=== PATIENT | female | born 1960 | race Caucasian/White ===

== ENCOUNTER 2019-03-01 16:44 | Observation (INO) | payer MEDICARE ==
[2019-03-01] MEDS ORDERED: Calcium Gluconate 10% 1 GM/10 ML SDV IVPUSH ONE (16:49)
[2019-03-01] MEDS ORDERED: Albuterol 0.083% 2.5 MG/3 ML Neb Soln NEB ONE (16:52)
[2019-03-01] MEDS ORDERED: Furosemide 40 MG/4 ML VIAL IVPUSH ONE (16:53)
[2019-03-01] MEDS ORDERED: Insulin Regular, Human 20 UNIT in Dextrose 10% in Water 500 ML IV SCH ×2 (17:00)
--- NOTE | 2019-03-01 17:01 | PCM.HP.2 ---
H&P History of Present Illness - General Date of Service: 03/01/19 Admit Problem/Dx: Admission Diagnosis/Problem Admission Diagnosis/Problem Hyperkalemia, diminished renal excretion Source of Information: Patient History Limitations: Reports: No Limitations - History of Present Illness Initial Comments - Free Text/Narative: This is a 58yo F sent to the clinic for hyperkalemia. She has had elevated potassium for days. She was asked to go to the hospital a few days ago but refused. She was asked to f/u yesterday for labs but could only make it today. She did get labs and was told to come in and get checked out right away. She denies any chest pain, no palpitations and she states she does not really need to be here. Onset of Symptoms: Reports: Gradual Duration of Symptoms: Reports: Day(s): - Related Data Allergies/Adverse Reactions: Allergies Allergy/AdvReac Type Severity Reaction Status Date / Time No Known Allergies Allergy Verified 10/08/18 13:38 Past Medical History Cardiovascular History: Reports: Other (See Below) Other Cardiovascular History: hypotension Musculoskeletal History: Reports: Other (See Below) Other Musculoskeletal History: arthodesis, multiple foot surgeries R Endocrine/Metabolic History: Reports: Diabetes, Type II H&P Review of Systems - Review of Systems: Review Of Systems: ROS reveals no pertinent complaints other than HPI. Exam - Exam Exam: See Below - Exam General: Alert, Oriented, Cooperative HEENT: PERRLA, Conjunctiva Clear, EACs Clear Neck: Supple, Trachea Midline Lungs: Clear to Auscultation, Normal Respiratory Effort Cardiovascular: Regular Rate, Regular Rhythm GI/Abdominal Exam: Normal Bowel Sounds Back Exam: Normal Inspection - Problem List (1) Acute hyperkalemia SNOMED Code(s): 5771633 ICD Code: E87.5 - HYPERKALEMIA Status: Acute Priority: High Current Visit: Yes (2) Renal dysfunction Status: Acute Priority: High Current Visit: Yes Problem List Initiated/Reviewed/Updated: Yes Orders Last 24hrs: Active Orders 24 hr Category Date Time Status Patient Status [ADT] Routine ADT 03/01/19 16:47 Ordered EKG Documentation Completion [RC] ASDIRECTED Care 03/01/19 16:54 Ordered EKG Documentation Completion [RC] ASDIRECTED Care 03/01/19 16:54 Ordered RT Aerosol Therapy [RC] ASDIRECTED Care 03/01/19 16:53 Ordered Vital Signs [RC] Q4H Care 03/01/19 16:47 Ordered Regular Diet [DIET] Diet 03/01/19 Dinner Ordered POTASSIUM,K [CHEM] Timed Lab 03/01/19 19:00 Ordered Albuterol [Proventil Neb Soln] Med 03/01/19 16:52 Once 2.5 mg NEB ONETIME ONE Calcium Gluconate Med 03/01/19 16:49 Once 1 gm IVPUSH ONETIME ONE Furosemide [Lasix] Med 03/01/19 16:53 Once 40 mg IVPUSH NOW ONE Insulin Regular, Human [HumuLIN R] 20 unit Med 03/01/19 17:00 Ordered Dextrose 10% in Water 500 ml IV ASDIRECTED Sodium Chloride 0.45% @ 125 MLS/HR(1,000ml) Med 03/01/19 17:00 Ordered Sodium Chloride 0.45% 1,000 ml IV ASDIRECTED Resuscitation Status Routine Resus Stat 03/01/19 16:47 Ordered EKG 12 Lead [EK] Routine Ther 03/01/19 16:53 Ordered EKG 12 Lead [EK] Routine Ther 03/01/19 19:00 Ordered Medication Orders Albuterol (Proventil Neb Soln) 2.5 mg NEB ONETIME ONE Stop: 03/01/19 16:53 Calcium Gluconate (Calcium Gluconate) 1 gm IVPUSH ONETIME ONE Stop: 03/01/19 16:50 Furosemide (Lasix) 40 mg IVPUSH NOW ONE Stop: 03/01/19 16:54 Insulin Human Regular 20 unit/ (Dextrose/Water) 500.2 mls @ 500 mls/hr IV ASDIRECTED [facility] Assessment/Plan Comment:: Patient to be placed on observation. Start on calcium gluconate, insulin and glucose, albuterol and fluids with lasix. Discussed close monitoring. F/u K+ and EKG.
[2019-03-01] MEDS ORDERED: Calcium Gluconate 1 GM in Dextrose 5% in Water 50 ML IV ONE ×2 (17:45)
[2019-03-01] MEDS ORDERED: WATER IV SCH ×2 (18:12)
[2019-03-01] MEDS ORDERED: HUMAN IV SCH ×2 (18:12)
[2019-03-01] MEDS ORDERED: DEXTROSE 10% IV SCH ×2 (18:12)
[2019-03-01] MEDS ORDERED: INSULIN REGULAR IV SCH ×2 (18:12)
[2019-03-01] MEDS ORDERED: Insulin Regular, Human 100 Units/ML 3 ML Vial ONE (18:28)
[2019-03-01] MEDS: Sodium Chloride 0.45% 1,000 ML IV SCH (22:53)
[2019-03-02] MEDS: Sodium Chloride 0.45% 1,000 ML IV SCH (06:37)
--- NOTE | 2019-03-02 08:09 | PCM.DCSUM1 ---
Discharge Summary - Discharge Data Discharge Date: 03/02/19 Discharge Disposition: Home, Self-Care 01 Condition: Good - Referral to Home Health Primary Care Physician: Damián Caputo MD - Discharge Diagnosis/Problem(s) (1) Acute hyperkalemia SNOMED Code(s): 0488950 ICD Code: E87.5 - HYPERKALEMIA Status: Resolved Priority: High Current Visit: Yes (2) Renal dysfunction Status: Chronic Priority: High Current Visit: Yes - Patient Instructions Diet: Renal Diet Activity: As Tolerated - Discharge Plan Home Medications: Home Meds Cholestyramine/Sucrose [Cholestyramine Packet] 4 gm PO 03/01/19 [History] Clopidogrel Bisulfate [Clopidogrel] 75 mg PO DAILY 03/01/19 [History] Doxycycline Hyclate 100 mg PO BID 03/01/19 [History] Ergocalciferol (Vitamin D2) [Ergocal] 50,000 units PO WEEKLY 03/01/19 [History] Fenofibrate Nanocrystallized [Fenofibrate] 48 mg PO DAILY 03/01/19 [History] Insulin Aspart [NovoLOG] 5 units SQ TIDMEALS 03/01/19 [History] Insulin Degludec [Tresiba Flextouch U-100] 45 units SQ BEDTIME 03/01/19 [History ] Lisinopril 1 tab PO DAILY 03/01/19 [History] Pantoprazole Sodium 1 tab PO DAILY 03/01/19 [History] - Discharge Summary/Plan Comment DC Time >30 min.: Yes Discharge Summary/Plan Comment: Counseled on hyperkalemia and management and likely caused from her lisinopril. Discussed close monitoring and f/u with PCP for f/u care and management. Discussed renal dysfunction and continued f/u with PCP for further care and recheck within a week. Patient adamant she needs to leave today despite concerns of continued renal dysfunction but patient does understand risks and states she understands her kidneys are bad and will follow up with her primary care this week. Discussed the need for medication adjustment for prevention of hyperkalemia. Patient to f/ u as directed and as needed. - Patient Data Vitals - Most Recent: Last Vital Signs Temp 36.4 C 03/02/19 03:00 Pulse 76 03/02/19 03:00 Resp 16 03/02/19 03:00 BP 114/48 L 03/02/19 03:00 Pulse Ox 100 03/02/19 03:00 Weight - Most Recent: 68.402 kg I&O - Last 24 hours: Intake & Output 03/01/19 03/02/19 03/02/19 22:59 06:59 14:59 Intake Total 1875 Balance 1875 Lab Results - Last 24 hrs: Laboratory Results - last 24 hr 03/01/19 03/01/19 03/02/19 Range/Units 19:00 20:00 07:20 WBC 7.0 (4.0-11.0) K/uL RBC 2.88 L (3.80-5.80) M/uL Hgb 8.5 L (11.5-16.5) g/dL Hct 26.3 L (37.0-47.0) % MCV 91 (76-96) fL MCH 29.5 (27.0-32.0) pg MCHC 32.3 (31.0-35.0) g/dL RDW 13.5 (11.0-16.0) % Plt Count 242 (150-500) K/uL MPV 8.8 (6.0-10.0) fL Neut % (Auto) 58.3 (45.0-70.0) % Lymph % (Auto) 33.6 (20.0-40.0) % [place] % (Auto) 5.0 (3.0-10.0) % Eos % (Auto) 2.7 (1.0-5.0) % Baso % (Auto) 0.4 (0.0-0.5) % Neut # (Auto) 4.08 (2.00-7.50) K/uL Lymph # (Auto) 2.35 (1.50-4.00) K/uL [place] # (Auto) 0.35 (0.20-0.80) K/uL Eos # (Auto) 0.19 (0.04-0.40) K/uL Baso # (Auto) 0.03 (0.02-0.10) K/uL Sodium (136-145) mmol/L Potassium 5.0 D (3.5-5.1) mmol/L Chloride (98-107) mmol/L Carbon Dioxide (21.0-32.0) mmol/L Anion Gap (5.0-15.0) mmol/L BUN (8-26) mg/dL Creatinine (0.55-1.02) mg/dL Est Cr Clr Drug Dosing mL/min Estimated GFR (MDRD) (>60) MLS/MIN BUN/Creatinine Ratio (6-25) Glucose (74-100) mg/dL POC Glucose 213 H (74-110) mg/dL Calcium (8.5-10.1) mg/dL Total Bilirubin (0.0-1.0) mg/dL AST (15-37) U/L ALT (12-78) U/L Alkaline Phosphatase (46-116) U/L Total Protein (6.4-8.2) g/dL Albumin (3.4-5.0) g/dL Globulin (2.2-4.2) g/dL Albumin/Globulin Ratio (0.8-2.0) 03/02/19 Range/Units 07:20 WBC (4.0-11.0) K/uL RBC (3.80-5.80) M/uL Hgb (11.5-16.5) g/dL Hct (37.0-47.0) % MCV (76-96) fL MCH (27.0-32.0) pg MCHC (31.0-35.0) g/dL RDW (11.0-16.0) % Plt Count (150-500) K/uL MPV (6.0-10.0) fL Neut % (Auto) (45.0-70.0) % Lymph % (Auto) (20.0-40.0) % [place] % (Auto) (3.0-10.0) % Eos % (Auto) (1.0-5.0) % Baso % (Auto) (0.0-0.5) % Neut # (Auto) (2.00-7.50) K/uL Lymph # (Auto) (1.50-4.00) K/uL [place] # (Auto) (0.20-0.80) K/uL Eos # (Auto) (0.04-0.40) K/uL Baso # (Auto) (0.02-0.10) K/uL Sodium 139 (136-145) mmol/L Potassium 5.0 (3.5-5.1) mmol/L Chloride 105 (98-107) mmol/L Carbon Dioxide 22.4 (21.0-32.0) mmol/L Anion Gap 16.6 H (5.0-15.0) mmol/L BUN 63 H* (8-26) mg/dL Creatinine 2.41 H (0.55-1.02) mg/dL Est Cr Clr Drug Dosing 18.50 mL/min Estimated GFR (MDRD) 21 L (>60) MLS/MIN BUN/Creatinine Ratio 26.1 H (6-25) Glucose 136 H (74-100) mg/dL POC Glucose (74-110) mg/dL Calcium 8.5 (8.5-10.1) mg/dL Total Bilirubin 0.3 (0.0-1.0) mg/dL AST 24 (15-37) U/L ALT 13 (12-78) U/L Alkaline Phosphatase 60 (46-116) U/L Total Protein 6.5 (6.4-8.2) g/dL Albumin 2.9 L (3.4-5.0) g/dL Globulin 3.6 (2.2-4.2) g/dL Albumin/Globulin Ratio 0.8 (0.8-2.0) Med Orders - Current: Current Medications Sodium Chloride (Sodium Chloride 0.45%) 1,000 mls @ 125 mls/hr IV ASDIRECTED [facility] Last Admin: 03/02/19 06:37 Dose: 125 mls/hr Insulin Human Regular 40 unit/ (Dextrose/Water) 1,000.4 mls @ 500 mls/hr IV ASDIRECTED [facility] Last Admin: 03/01/19 18:15 Dose: 500 mls/hr Discontinued Medications Albuterol (Proventil Neb Soln) 2.5 mg NEB ONETIME ONE Stop: 03/01/19 16:53 Last Admin: 03/01/19 17:15 Dose: 2.5 mg Calcium Gluconate (Calcium Gluconate) 1 gm IVPUSH ONETIME ONE Stop: 03/01/19 16:50 Last Admin: 03/01/19 21:49 Dose: Not Given Furosemide (Lasix) 40 mg IVPUSH NOW ONE Stop: 03/01/19 16:54 Last Admin: 03/01/19 17:20 Dose: 40 mg Insulin Human Regular 20 unit/ (Dextrose/Water) 500.2 mls @ 500 mls/hr IV ASDIRECTED [facility] Calcium Gluconate 1 gm/ (Dextrose/Water) 60 mls @ 120 mls/hr IV ONETIME ONE Stop: 03/01/19 18:14 Last Admin: 03/01/19 17:25 Dose: 120 mls/hr Insulin Human Regular (Humulin R) Confirm Administered Dose 300 unit .ROUTE .STK -MED ONE Stop: 03/01/19 18:29 Last Admin: 03/01/19 21:50 Dose: Not Given
== END 2019-03-02 09:38 | disposition home or self-care (01) ==
LOC: LB.MS 16:44 → UNDOADMOB 16:44 → LB.MS 16:47
PROVIDERS: ADMIT Family Medicine; ATTEND Family Medicine
DX: E87.5 Hyperkalemia (principal); E11.22 Type 2 diabetes mellitus with diabetic chronic kidney disease; N18.9 Chronic kidney disease, unspecified; Z79.02 Long term (current) use of antithrombotics/antiplatelets; Z79.4 Long term (current) use of insulin; Z79.899 Other long term (current) drug therapy
CPT/HCPCS: 36415; 80053; 82962; 84132; 85025; 93005; 96361; 96374; 96375; G0378; J0610; J1940; J3490; J7060

== ENCOUNTER 2022-05-13 13:42 | Emergency (ER) | payer MEDICARE | END 2022-05-13 15:15 | disposition home or self-care (01) | LOC: LB.ED 13:42 | DX: J44.9 Chronic obstructive pulmonary disease, unspecified (principal); I12.9 Hypertensive chronic kidney disease with stage 1 through stage 4 chronic kidney disease, or unspecified chronic kidney disease; E11.22 Type 2 diabetes mellitus with diabetic chronic kidney disease; N18.9 Chronic kidney disease, unspecified; K21.9 Gastro-esophageal reflux disease without esophagitis; Z79.899 Other long term (current) drug therapy | CPT/HCPCS: 71046; 82947; 99283 ==

== ENCOUNTER 2022-05-30 18:34 | Inpatient (IN) | payer MEDICARE ==
[2022-05-30] MEDS ORDERED: Sodium Chloride 0.9% 1,000 ML IV ONE (19:12)
[2022-05-30] MEDS ORDERED: Albuterol/Ipratropium 3.0-0.5 MG/3 ML Neb Soln NEB ONE (19:16)
[2022-05-30] MEDS ORDERED: Enoxaparin 60 MG/0.6 ML Syringe SUBCUT ONE (20:33)
[2022-05-30] MEDS ORDERED: Ondansetron 4 MG/2 ML SDV IV PRN (21:40)
[2022-05-30] MEDS ORDERED: ERGOCALCIFEROL PO SCH (21:46)
[2022-05-30] MEDS ORDERED: Glucagon,Human Recombinant 1 MG Vial IM PRN (21:46)
[2022-05-30] MEDS ORDERED: [UNRECOGNIZED DRUG - OTHER] PO SCH (21:46)
[2022-05-30] MEDS ORDERED: 50% Dextrose in Water 50 ML Syringe IVPUSH PRN (21:46)
[2022-05-30] MEDS ORDERED: Ondansetron 4 MG Tab.DIS PO PRN (22:01)
[2022-05-30] MEDS ORDERED: Acetaminophen 325 MG Tab PO PRN (22:01)
[2022-05-30] MEDS ORDERED: Albuterol 0.021% 0.63 MG/3 ML Neb Soln NEB PRN (22:01)
[2022-05-30] MEDS ORDERED: traMADol 50 MG Tab PO PRN (22:01)
[2022-05-30] MEDS ORDERED: Benzonatate 100 MG Cap PO PRN (22:03)
[2022-05-30] MEDS ORDERED: Codeine/guaiFENesin 10-100 MG/5 ML Syrup 5 ML Cup PO PRN (22:03)
[2022-05-30] MEDS: Albuterol/Ipratropium 3.0-0.5 MG/3 ML Neb Soln NEB SCH (23:25)
[2022-05-31] MEDS ORDERED: guaiFENesin/Dextromethorphan 100-10 MG/5 ML Soln 10 ML Cup PO PRN (00:34)
[2022-05-31] MEDS: Albuterol/Ipratropium 3.0-0.5 MG/3 ML Neb Soln NEB SCH ×2 (07:50→08:39)
[2022-05-31] MEDS ORDERED: Clopidogrel 75 MG Tab PO SCH (08:00)
[2022-05-31] MEDS ORDERED: Pantoprazole 40 MG Tab.CR PO SCH (08:00)
[2022-05-31] MEDS ORDERED: Cholestyramine/Sucrose Powder 378 GM Jar PO SCH (08:00)
[2022-05-31] MEDS ORDERED: Fenofibrate,Micronized 67 MG Cap PO SCH (08:00)
[2022-05-31] MEDS: Insulin Aspart 100 Units/ML 3 ML Pen SUBCUT SCH ×4 (08:47→12:14)
[2022-05-31] MEDS ORDERED: cefTRIAXone 2 GM in Sodium Chloride 0.9% 100 ML IV SCH (10:00)
[2022-05-31] MEDS ORDERED: Enoxaparin 60 MG/0.6 ML Syringe ONE (13:44)
[2022-05-31] MEDS ORDERED: Sodium Chloride 0.9% 1,000 ML IV SCH (13:45)
[2022-05-31] MEDS ORDERED: Non-Formulary Medication 1 Each (Insulin Degludec [Tresiba Flextouch U-100] 100 UNIT/ML Pe SQ SCH (20:00)
[2022-05-31] MEDS ORDERED: Enoxaparin 60 MG/0.6 ML Syringe SUBCUT SCH (20:00)
== END 2022-05-31 16:35 | DRG 178 ==
LOC: LB.ED 18:34 → LB.MS 21:20 → OBSVTOIN 21:20
PROVIDERS: ADMIT Physician Assistant; ATTEND Physician Assistant
DX: U07.1 COVID-19 (principal); M18.9 Osteoarthritis of first carpometacarpal joint, unspecified; N39.0 Urinary tract infection, site not specified; W19.XXXA Unspecified fall, initial encounter; I50.9 Heart failure, unspecified; I12.9 Hypertensive chronic kidney disease with stage 1 through stage 4 chronic kidney disease, or unspecified chronic kidney disease; E78.00 Pure hypercholesterolemia, unspecified; N18.9 Chronic kidney disease, unspecified; I13.0 Hypertensive heart and chronic kidney disease with heart failure and stage 1 through stage 4 chronic kidney disease, or unspecified chronic kidney disease; Z79.02 Long term (current) use of antithrombotics/antiplatelets; E11.22 Type 2 diabetes mellitus with diabetic chronic kidney disease; Z20.822 Contact with and (suspected) exposure to COVID-19; Z98.49 Cataract extraction status, unspecified eye; Z79.4 Long term (current) use of insulin; Z90.49 Acquired absence of other specified parts of digestive tract; Z79.899 Other long term (current) drug therapy; Z87.891 Personal history of nicotine dependence
CPT/HCPCS: 36415; 51702; 71250; 74176; 80053; 81001; 82947; 83605; 83735; 83880; 84484; 85025; 85379; 87804; 87804-59; 93005; 96360; 96372; 99284-25; A0425; A0429; A9270-GY; J0696; J1650; J1815-GY; J7030; J7620; U0002